=== PATIENT | female | born 1970 | race African-American/Black ===

== ENCOUNTER 2019-07-26 23:08 | Emergency (ER) | payer OTHER ==
[2019-07-26] MEDS ORDERED: Naproxen 500 MG TAB ONE (23:24)
== END 2019-07-26 23:30 | disposition home or self-care (01) ==
LOC: NAV ERS 23:08
DX: S46.911A Strain of unspecified muscle, fascia and tendon at shoulder and upper arm level, right arm, initial encounter (principal); X58.XXXA Exposure to other specified factors, initial encounter
CPT/HCPCS: 99283